=== PATIENT | female | born 1975 | race Caucasian/White ===

== ENCOUNTER 2021-06-19 07:56 | Emergency (ER) | payer BC, OTHER ==
[2021-06-19 11:44] VITALS: BP 120/81; PULSE 72
== END 2021-06-19 11:44 | disposition home or self-care (01) ==
LOC: JD.ED 07:56
DX: M25.512 Pain in left shoulder (principal)
CPT/HCPCS: 36415; 71046; 71046-26; 73030-26-LT; 73030-LT; 80053; 84484; 85025; 85379; 85610; 93005; 99284-25